=== PATIENT | male | born 1985 | race Two or more races ===

== ENCOUNTER 2017-11-29 16:50 | Emergency (ER) | payer SELFPAY ==
[~2017-11-29] VITALS: Ht 175.3 cm; Wt 100.0 kg
[2017-11-29 17:57] VITALS: BP 115/67
[2017-11-29] MEDS ORDERED: BACITRACIN ZINC OINT UDPKT TOP ONE (23:45)
== END 2017-11-30 00:24 | disposition home or self-care (01) ==
LOC: ER 16:50
DX: S20.319A Abrasion of unspecified front wall of thorax, initial encounter (principal); X95.9XXA Assault by unspecified firearm discharge, initial encounter; Y93.89 Activity, other specified; Y92.89 Other specified places as the place of occurrence of the external cause
CPT/HCPCS: 71045; 99283